=== PATIENT | female | born 1995 | race Caucasian/White ===

== ENCOUNTER 2017-05-08 03:20 | Emergency (ER) | payer OTHER ==
[~2017-05-08] VITALS: Ht 154.9 cm; Wt 68.2 kg
[2017-05-08] MEDS ORDERED: IBUPROFEN 600 MG TAB PO ONE (05:30)
[2017-05-08 05:32] VITALS: BP 136/72
== END 2017-05-08 06:03 | disposition home or self-care (01) ==
LOC: M ED 03:20
DX: R10.2 Pelvic and perineal pain (principal)